=== PATIENT | male | born 1980 | race Hispanic/Latino ===

== ENCOUNTER 2017-06-25 08:13 | Emergency (ER) | payer BC, OTHER ==
[2017-06-25] MEDS ORDERED: METHYLPREDNISOLONE SOD SUCC 125MG/2ML VIAL ONE (09:32)
== END 2017-06-25 09:41 | disposition home or self-care (01) ==
LOC: EDH 08:13
DX: M10.071 Idiopathic gout, right ankle and foot (principal); Z72.0 Tobacco use
CPT/HCPCS: 96372; 99283; J2930

== ENCOUNTER 2021-07-05 23:32 | Emergency (ER) | payer BC, OTHER ==
[~2021-07-05] VITALS: Ht 165.1 cm; Wt 108.9 kg
[2021-07-06 00:47] LABS: BASOPHILS % (AUTO) 0.4 % (0.0-5.0); EOSINOPHILS % (AUTO) 2.9 % (0.0-8.0); HEMATOCRIT 46.7 % (42-54); LYMPHOCYTES % (AUTO) 24.7 % (21.0-51.0); MEAN CORPUSCULAR HEMOGLOBIN 30.1 pg (27.0-33.0); MEAN CORPUSCULAR HGB CONC 34.7 g/dL (32.0-36.0); MEAN CORPUSCULAR VOLUME 86.8 fL (79-99); MONOCYTES % (AUTO) 7.2 % (3.0-13.0); NEUTROPHILS % (AUTO) 64.5 % (40.0-77.0); PLATELET COUNT (AUTO) 319 K/uL (130-400); RED BLOOD CELL COUNT(AUTO) 5.38 MIL/uL (4.50-6.20); RED CELL DISTRIBUTION WIDTH 12.3 % (11.0-15.5); WHITE BLOOD COUNT (AUTO) 9.6 K/uL (4.8-10.8)
[2021-07-06 00:57] LABS: POTASSIUM 3.3 mmol/L (3.5-5.1)
[2021-07-06 01:02] LABS: ALBUMIN 3.8 g/dL (3.5-5.0); BILIRUBIN,TOTAL 0.4 mg/dL (0.2-1.0); TOTAL PROTEIN, SERUM 7.7 g/dL (6.0-8.3)
[2021-07-06] MEDS ORDERED: METOPROLOL TARTRATE 25 MG TAB PO ONE (05:00)
[2021-07-06] MEDS ORDERED: POTASSIUM BICARB/CIT AC 25 MEQ TABLET.EFF PO ONE (05:00)
[2021-07-06] MEDS ORDERED: METO25TA6 PO (06:34)
[2021-07-06 06:42] VITALS: BP 141/97
== END 2021-07-06 06:44 | disposition home or self-care (01) ==
LOC: EDH 23:32
DX: R07.89 Other chest pain (principal); I10 Essential (primary) hypertension; R19.7 Diarrhea, unspecified; Z79.899 Other long term (current) drug therapy
CPT/HCPCS: 36415; 80053; 84484; 85025; 93005